=== PATIENT | female | born 1975 | race Caucasian/White ===

== ENCOUNTER → 2021-08-03 09:07 | Outpatient (BNVA) | payer BC, MEDICAID, SELFPAY | PROVIDERS: Family Provider Family Medicine; Visit Provider Family Medicine Adult Medicine | DX: E11.65 Type 2 diabetes mellitus with hyperglycemia (principal); E66.9 Obesity, unspecified; Z13.6 Encounter for screening for cardiovascular disorders | CPT/HCPCS: 80053; 80061; 83036; 83690; 84443; 85025 ==

== ENCOUNTER 2024-02-03 02:56 | Emergency (ER) | payer BC, MEDICAID, SELFPAY ==
--- NOTE | 2024-02-03 03:12 | XRR_ITS ---
PROCEDURE INFORMATION: Exam: XR Left Ribs Exam date and time: 02/03/2024 3:20 AM Age: 48 years old Clinical indication: Injury or trauma; Fall; Rib area, left side; Blunt trauma; Additional info: Left rib pain TECHNIQUE: Imaging protocol: Radiologic exam of the left ribs. Views: 2 views. COMPARISON: No relevant prior studies available. FINDINGS: Bones/joints: Normal. No displaced rib fracture. Soft tissues: Normal. XR/XR ribs LT 2V* [id number] IMPRESSION: No acute findings.
[2024-02-03 03:13] VITALS: BP 130/92; PULSE 101; RESP 18; TEMP 36.6; O2SAT 97; BMI 28.3
[2024-02-03 03:30] VITALS: BP 130/92; PULSE 88; RESP 24; O2SAT 99
[2024-02-03 03:38] LABS: Add Urine Culture? No; Bilirubin Urine Neg (Negative); Blood Urine Neg (Negative); Glucose Urine UA 4+ (Normal); Ketones Urine Negative (Negative); Leukocyte Esterase Urine Trace (Negative); Nitrate Urine Negative (Negative); Protein Urine Neg (Negative); Squamous Epithelial Cell Urine 0-4 /hpf (0-5); Urine Appearance Clear (CLEAR); Urine Color Yellow (Yellow); Urobilinogen Urine Neg (Negative); WBC Urine 0-4 /hpf (0-5); pH Urine 5 (5-7)
--- NOTE | 2024-02-03 03:39 | ED_ITS ---
HPI - General Adult General: Chief complaint: General Medical Stated complaint: Left Side/Rib pain Time Seen by Provider: 02/03/24 02:59 History of Present Illness: Patient comes to the ER with left-sided chest wall pain, rib pain hurts worse when she takes a big deep breath or twists or moves. Patient says she fell about 5 days ago while walking on a pallet and may have slipped in her ribs on her left side. Patient i is in no acute distress, nontoxic and Related Data Home Medications Medication Instructions Recorded Confirmed acetaminophen 325 mg tablet 325 mg PO QID PRN 08/03/21 05/27/22 (Tylenol) ibuprofen 200 mg tablet 200 mg PO Q6H PRN 08/03/21 05/27/22 Previous Rx's Medication Instructions Recorded One touch Verio test strips #1 ea 09/06/21 sitagliptin phosphate 100 mg 100 mg PO DAILY diabetes #30 tabs 09/06/21 tablet (Januvia) metformin 1,000 mg tablet 1,000 mg PO BID diabetes #60 tabs 04/17/22 meloxicam 7.5 mg tablet 7.5 mg PO .Twice daily #14 tabs 02/03/24 Allergies Allergy/AdvReac Type Severity Reaction Status Date / Time No Known Allergies Allergy Verified 02/03/24 03:20 Review of Systems General: Reports: 10 or more systems reviewed and unremarkable except in HPI and below PFSH ED PFSH: Medical History Obesity (BMI 35.0-39.9 without comorbidity) Diabetes type 2, uncontrolled Depression PTSD (post-traumatic stress disorder) Anxiety Surgical History Hx of hysterectomy, total Hx of left knee surgery Family History Mother Diabetes Hyperlipidemia Hypertension Lupus Rheumatoid arthritis Neuropathy Father Diabetes Hyperlipidemia Hypertension Brother Diabetes Grandmother Diabetes Dementia Cancer Social History Smoking and tobacco/nicotine status: current every day tobacco/nicotine user Alcohol intake: current Alcohol intake frequency: few times a week Substance/Drug Use: current Substance/Drug use frequency: daily Marital status: Number of children: 2 Current occupational status: unemployed Physical Exam Const: COMMON NORMALS: no acute distress, average body habitus, patient oriented x3, no limitations, healthy appearing, alert and well nourished HENMT: COMMON NORMALS: normocephalic, atraumatic, hearing grossly normal bilaterally, external ears normal, Normal external nose present and moist oral mucous membranes HEAD & SCALP: normocephalic and atraumatic NOSE: Normal external nose present EXTERNAL EAR: Yes external ears normal Neck/C-Spine: COMMON NORMALS: no JVD Chest: COMMONS NORMALS: normal inspection of the chest; negative for normal palpation of entire chest wall ( left anterior ribs approximately 5 and 6 tender to palpate repro) Resp: COMMON NORMALS: normal respiratory effort, No retractions, No use of accessory muscles and clear to auscultation bilaterally AUSCULTATION: clear to auscultation bilaterally Cardio: COMMON NORMALS: no JVD, regular rate, regular rhythm, S1 normal heart sound present, S2 normal heart sound present, No gallops present (Cardio), No clicks present (Cardio), No murmurs present (Cardio) and No rub (Cardio) RATE: regular rate RHYTHM: regular rhythm HEART SOUNDS: S1 normal heart sound present and S2 normal heart sound present GI: COMMON NORMALS: Normal to inspection, nondistended, normoactive bowel sounds present, Soft to palpation, non-tender, No hepatosplenomegaly present and no masses PALPATION: Yes Soft to palpation and Yes No hepatosplenomegaly present Neuro: COMMON NORMALS: patient oriented x3 SENSORIUM/ORIENTATION: Yes alert Course Vital Signs: Vital signs: Vital Signs Temperature 97.9 F 02/03/24 03:13 Pulse Rate 88 02/03/24 03:30 Respiratory Rate 24 H 02/03/24 03:30 Blood Pressure 130/92 02/03/24 03:30 Pulse Oximetry 99 02/03/24 03:30 Oxygen Delivery Me thod Room Air 02/03/24 03:30 [facility] - General Adult Medical Decision Making X-rays were preliminary read by myself is no acute fractures, urinalysis did show 4+ glucose and trace leukocyte Estrace. Patient be given 1 tramadol here and a prescription to go home with her meloxicam. Will wait for the culture of the urine to see if it is positive for infection. Otherwise patient is instructed to follow-up with her PCP for further pain control and blood sugar control. Medical Records I reviewed the patient's medical records. Lab Data I reviewed the patient's lab results. Laboratory Results Urine Color Yellow (Yellow) 02/03/24 03:09 Urine Appearance Clear (CLEAR) 02/03/24 03:09 Urine pH 5 (5-7) 02/03/24 03:09 Ur Specific [place] 1.010 (1.005-1.030) 02/03/24 03:09 Urine Protein Neg (Negative) 02/03/24 03:09 Urine Glucose (UA) 4+ (Normal) H 02/03/24 03:09 Urine Ketones Negative (Negative) 02/03/24 03:09 Urine Blood Neg (Negative) 02/03/24 03:09 Urine Nitrate Negative (Negative) 02/03/24 03:09 Urine Bilirubin Neg (Negative) 02/03/24 03:09 Urine Urobilinogen Neg mg/dL (Negative) 02/03/24 03:09 Ur Leukocyte Esterase Trace (Negative) H 02/03/24 03:09 Urine RBC None /hpf (0-2) 02/03/24 03:09 Urine WBC 0-4 /hpf (0-5) H 02/03/24 03:09 Ur Squamous Epith Cells 0-4 /hpf (0-5) H 02/03/24 03:09 Amorphous Sediment Not Reportable 02/03/24 03:09 Urine Bacteria None /hpf (NONE) 02/03/24 03:09 XR interpretation done by ED provider, pending radiology final review Discharge Plan Discharge Patient Disposition: Home Clinical Impression: Rib pain on left side Condition: Stable Prescriptions: New meloxicam 7.5 mg tablet 7.5 mg PO .Twice daily Qty: 14 0RF No Action acetaminophen [Tylenol] 325 mg tablet 325 mg PO QID PRN ibuprofen 200 mg tablet 200 mg PO Q6H PRN (DME) One touch Verio test strips See Rx Instructions .Route .MEDSUPPLY Qty: 1 12RF Rx Instructions: As directed Januvia 100 mg tablet 100 mg PO DAILY Qty: 30 5RF metformin 1,000 mg tablet 1,000 mg PO BID Qty: 60 3RF Discharge Orders: Discharge ED (Routine); Ordered 02/03/24 Ordered By: Robert Wells Referrals: Scot Cerda MD [Primary Care Provider] - 1 week Patient Instructions: Chest Pain - Chest Wall Activity Restrictions/Additional Instructions: Preliminary reading of the x-rays were negative for acute fracture. The radiologist will be reading them shortly if he sees anything else we will be giving a call. Otherwise please take your medicine as prescribed as needed and follow-up with your family practice physician in the next 7 days for further evaluation and treatment. Thank you for choosing [facility] for your healthcare needs today. Please realize that you were seen in the emergency department and that we are providing you with an emergency medical screening exam and this may not be a complete and all exclusive of all testing and/or medical workup we may need to determine your element or severity of your illness. It is very important that you follow-up as instructed with your primary care provider or specialist for the additional evaluation and to discuss your medical treatment plan. You may return to the emergency department should you have concerns or if your condition changes or worsens in any way. Coding Level of Care Code ED Timber Estimator for Jenny Martin
[2024-02-03] MEDS: TRAMadol 50 mg Tablet PO (04:04)
[2024-02-03 04:10] VITALS: BP 130/92; PULSE 87; RESP 17; O2SAT 97
== END 2024-02-03 04:12 | disposition home or self-care (01) ==
PROVIDERS: Emergency Provider Emergency Medicine; PCP Family Medicine Adult Medicine
DX: R07.81 Pleurodynia (principal); Z72.0 Tobacco use; E11.9 Type 2 diabetes mellitus without complications
CPT/HCPCS: 71100; 81001; 99284

== ENCOUNTER → 2024-12-23 14:05 | Outpatient (BNVA) | payer BC, MEDICAID, SELFPAY | PROVIDERS: PCP Family Medicine; Visit Provider Family Medicine | DX: E11.9 Type 2 diabetes mellitus without complications (principal); E11.65 Type 2 diabetes mellitus with hyperglycemia; N64.52 Nipple discharge | CPT/HCPCS: 80053; 80061; 82043; 83036; 84146; 85025 ==

== ENCOUNTER 2024-12-28 14:05 | Outpatient (CLI) | payer BC, MEDICAID, SELFPAY ==
--- NOTE | 2024-12-28 14:00 | MM_ITS ---
WS: [id number] DIAGNOSTIC BILATERAL DIGITAL BREAST TOMOSYNTHESIS MAMMOGRAPHY WITH CAD Bilateral breast ultrasound, limited HISTORY: bilateral breast pain COMPARISON: None available. TECHNIQUE: Bilateral craniocaudad, mediolateral oblique, and mediolateral views are submitted with tomosynthesis and SM. Computer aided detection utilized. Breast composition: The breasts are heterogeneously dense, which may obscure small masses. No suspicious masses or distortion. No suspicious grouping of calcifications. There are a few benign-appearing calcifications within each breast. No skin thickening. Very slight inversion of the nipples. Bilateral breast ultrasound, limited. Ultrasound is directed to the areas of pain by the patient. There are no masses or abnormalities within either breast corresponding to the areas of pain. MM/MM diag BI tomosynthesis [id number] IMPRESSION: BI-RADS: 2 - Benign FOLLOW UP: 1 Year Follow-up No ultrasound or mammographic abnormality within either breast.
--- NOTE | 2024-12-28 15:07 | US_ITS ---
WS: [id number] DIAGNOSTIC BILATERAL DIGITAL BREAST TOMOSYNTHESIS MAMMOGRAPHY WITH CAD Bilateral breast ultrasound, limited HISTORY: bilateral breast pain COMPARISON: None available. TECHNIQUE: Bilateral craniocaudad, mediolateral oblique, and mediolateral views are submitted with tomosynthesis and SM. Computer aided detection utilized. Breast composition: The breasts are heterogeneously dense, which may obscure small masses. No suspicious masses or distortion. No suspicious grouping of calcifications. There are a few benign-appearing calcifications within each breast. No skin thickening. Very slight inversion of the nipples. Bilateral breast ultrasound, limited. Ultrasound is directed to the areas of pain by the patient. There are no masses or abnormalities within either breast corresponding to the areas of pain. US/US breast BI limited* [id number] IMPRESSION: BI-RADS: 2 - Benign FOLLOW UP: 1 Year Follow-up No ultrasound or mammographic abnormality within either breast.
== END 2024-12-28 14:06 | disposition home or self-care (01) ==
LOC: RAD 14:07
PROVIDERS: PCP Family Medicine; Visit Provider Family Medicine
DX: N64.4 Mastodynia (principal); R92.1 Mammographic calcification found on diagnostic imaging of breast; N64.59 Other signs and symptoms in breast; R92.333 Mammographic heterogeneous density, bilateral breasts
CPT/HCPCS: 76642; 77062; G0279

== ENCOUNTER 2024-12-29 15:58 | Outpatient (CLI) | payer BC, MEDICAID, SELFPAY ==
--- NOTE | 2024-12-29 15:45 | CTR_ITS ---
PROCEDURE INFORMATION: Exam: CT Abdomen And Pelvis With Contrast Exam date and time: 12/29/2024 4:55 PM Age: 49 years old Clinical indication: Pain and abnormal findings; Abnormal lab test; Abnormal function test of other organs/systems; Generalized; Prior surgery; Surgery date: 6+ months; Surgery type: Appy, hyst; Generalize abdominal pain with constipation x 2 months, elevated lft's TECHNIQUE: Imaging protocol: Computed tomography of the abdomen and pelvis with contrast. Radiation optimization: All CT scans at this facility use at least one of these dose optimization techniques: automated exposure control; mA and/or kV adjustment per patient size (includes targeted exams where dose is matched to clinical indication); or iterative reconstruction. Contrast material: OMNIPAQUE 350; Contrast volume: 100 ml; Contrast route: INTRAVENOUS (IV); Other contrast: Oral, omnipaque 350, 50; COMPARISON: CR XR ribs LT 2V* [id number] 02/03/2024 3:20 AM RADIATION DOSE METRICS: Total DLP (mGy-cm): 231.63 FINDINGS: Lungs: Mild left basilar atelectasis. 4 mm right lower lobe nodule on series 3, image 6. Liver: Mild periportal edema. No focal liver lesion. Gallbladder and biliary ducts: No definite gallbladder wall thickening. Small volume pericholecystic fluid. No biliary ductal dilatation. Pancreas: Normal. No ductal dilation. Spleen: Normal. No splenomegaly. Adrenal glands: Normal. No mass. Kidneys and ureters: Subcentimeter renal hypodensities are too small to characterize but likely represent cysts. Stomach and bowel: Moderate stool throughout the colon. Appendix: No evidence of appendicitis. Intraperitoneal space: Unremarkable. No free air. No significant fluid collection. Vasculature: Unremarkable. No abdominal aortic aneurysm. Lymph nodes: Unremarkable. No enlarged lymph nodes. Urinary bladder: Unremarkable as visualized. Reproductive: Status post hysterectomy. No suspicious adnexal mass. Bones/joints: Mild degenerative changes of the lumbar spine. Mild leftward curvature of the lumbar spine. Soft tissues: Mild anasarca. CT/CT abdomen pelvis w con* [id number] IMPRESSION: 1. Small volume pericholecystic fluid is nonspecific. No definite gallbladder wall thickening. However, acute cholecystitis is not entirely excluded. This could be further assessed with right upper quadrant ultrasound and/or HIDA scan if warranted. 2. Mild periportal edema may represent fluid overload but can also be seen with acute hepatitis among other etiologies. 3. Moderate colonic stool may reflect constipation. 4. 4 mm right lower lobe pulmonary nodule. For patients at low risk (minimal or absent history of smoking and of other known risk factors), no routine follow-up is indicated. For patients at high risk (history of smoking or of other known risk factors), consider optional CT Chest at 12 months. (Reference: Scott) COMMENTS: Consistent with the [place] [employer]'s Incidental Findings Committee white paper (J Am Heidy Radiol 2018): Any incidental renal lesion less than 1 cm or classified as too small to characterize, or any incidental cystic renal lesion characterized as simple-appearing, is likely benign. No follow-up imaging is recommended for these lesions per consensus recommendations based on imaging criteria. REFERENCES: Scott Gomez, et al. Guidelines for Management of Incidental Pulmonary Nodules Detected on CT Images: From the [employer]isch[employer] Society 2017. Radiology. 2017;284(1):228-243.
[2024-12-29] MEDS: iohexol 350 mg/mL 500 mL Btl (per mL) PO (16:38)
[2024-12-29] MEDS: iohexol 350 mg/mL 500 mL Btl (per mL) IV (17:02)
[2024-12-29 20:45] LABS: Hepatitis A Antibody IgM Non-Reactive (Nonreactive); Hepatitis B Surface Antigen Non-Reactive (Nonreactive)
[2024-12-31 14:44] LABS: HEP C RNA Viral Load Quant 5460000 IU/mL (NOT DETECTED); HEP C RNA Viral Load Quant 6.74 Log IU/mL (NOT DETECTED)
== END 2024-12-29 15:59 | disposition home or self-care (01) ==
LOC: RAD 16:01
PROVIDERS: PCP Family Medicine; Visit Provider Family Medicine
DX: R79.89 Other specified abnormal findings of blood chemistry (principal); Z90.710 Acquired absence of both cervix and uterus; J98.11 Atelectasis; K56.41 Fecal impaction; R60.1 Generalized edema; M41.86 Other forms of scoliosis, lumbar region
CPT/HCPCS: 36415; 74177; 80074; 87522

== ENCOUNTER → 2025-01-12 14:32 | Outpatient (BNVA) | payer BC, MEDICAID, SELFPAY | PROVIDERS: PCP Family Medicine; Visit Provider Family Medicine | DX: B17.10 Acute hepatitis C without hepatic coma (principal) | CPT/HCPCS: 80053; 85610; 87806 ==

== ENCOUNTER → 2025-02-15 13:31 | Outpatient (BNVA) | payer BC, MEDICAID, SELFPAY | PROVIDERS: PCP Family Medicine; Visit Provider Family Medicine | DX: B17.10 Acute hepatitis C without hepatic coma (principal) | CPT/HCPCS: 82977; 83615; 84450; 84460; 87522 ==

== ENCOUNTER 2025-02-24 06:35 | Outpatient (CLI) | payer BC, MEDICAID, SELFPAY ==
--- NOTE | 2025-02-24 06:40 | US_ITS ---
WS: [id number] RIGHT UPPER QUADRANT ULTRASOUND HISTORY: Abdominal Pain COMPARISON: 10/05/2008, 12/29/2024 Liver: 12.9 cm in length. The surface of the liver is very slightly nodular and undulating suggesting cirrhosis. No intrahepatic mass. No bile duct dilatation. Portal Vein: Normal hepatopetal flow with monophasic waveform. Gallbladder: Normally distended gallbladder with no stones or wall thickening. CBD: 0.4 cm Pancreas: Partially obscured. Right kidney: 10.5 cm in length. Normal size and echogenicity. No hydronephrosis or mass. Aorta and IVC: Unremarkable abdominal aorta and IVC. No ascites. US/US gall bladder [id number] IMPRESSION: 1. Normal gallbladder. 2. No intrahepatic duct dilatation. 3. Very slight nodular surface of the liver. This can be seen with early liu es of cirrhosis.
== END 2025-02-24 06:36 | disposition home or self-care (01) ==
LOC: RAD 06:36
PROVIDERS: PCP Family Medicine; Visit Provider Family Medicine
DX: R10.9 Unspecified abdominal pain (principal); K76.89 Other specified diseases of liver
CPT/HCPCS: 76705

== ENCOUNTER → 2025-03-10 12:01 | Outpatient (BNVA) | payer BC, MEDICAID, SELFPAY | PROVIDERS: PCP Family Medicine; Visit Provider Family Medicine | DX: M54.89 Other dorsalgia (principal); M25.552 Pain in left hip; M25.551 Pain in right hip; M25.512 Pain in left shoulder; M25.511 Pain in right shoulder; M25.532 Pain in left wrist; M25.531 Pain in right wrist; M25.562 Pain in left knee; M25.561 Pain in right knee | CPT/HCPCS: 80053; 85025; 85651; 86038; 86140; 86200; 86431 ==

== ENCOUNTER → 2025-04-18 15:47 | Outpatient (BNVA) | payer BC, MEDICAID, SELFPAY | PROVIDERS: PCP Family Medicine; Visit Provider Family Medicine | DX: E11.65 Type 2 diabetes mellitus with hyperglycemia (principal) | CPT/HCPCS: 80053; 83036 ==